=== PATIENT | male | born 1960 | race Caucasian/White ===

== ENCOUNTER → 2023-08-07 | Outpatient (REF) | payer OTHER | LOC: M SFHCDERM 13:02 | PROVIDERS: ATTEND Physician Assistant | DX: D48.9 Neoplasm of uncertain behavior, unspecified (principal) ==

== ENCOUNTER → 2024-06-21 | Outpatient (CLI) | payer OTHER ==
[~2024-06-21] MED LIST: PROHANCE 279.3MG/ML 15ML VIAL As Ordered ONE; PROHANCE 279.3MG/ML 5ML VIAL As Ordered ONE
== END ==
LOC: M RAD 14:56
PROVIDERS: ATTEND Student in an Organized Health Care Education/Training Program
DX: D49.89 Neoplasm of unspecified behavior of other specified sites (principal)
CPT/HCPCS: 70553; A9576

== ENCOUNTER → 2024-06-29 | Outpatient (CLI) | payer OTHER ==
[~2024-06-29] MED LIST changes: +LEVO1TAB39 PO; +MELA3TAB49 PO; +NICO7DIS24 TD; -PROHANCE 279.3MG/ML 15ML VIAL As Ordered ONE; -PROHANCE 279.3MG/ML 5ML VIAL As Ordered ONE
[2024-06-29 14:21] LABS: BASO % 0.1 % (0.0-1.0); EOS # 0.2 10^3/uL (0.0-0.5); EOS % 2.1 % (0.0-3.0); HEMATOCRIT 36.4 % (42.0-52.0); HEMOGLOBIN 11.1 g/dl (13.5-17.5); LYMPH # 1.6 10^3/uL (1.5-5.0); LYMPH % 16.5 % (24.0-44.0); MEAN CORPUSCULAR HEMOGLOBIN 25.2 pg (27.0-33.0); MEAN CORPUSCULAR HGB CONC 30.5 g/dl (32.0-36.5); MEAN CORPUSCULAR VOLUME 82.7 fl (80.0-96.0); MONO # 0.7 10^3/uL (0.0-0.8); MONO % 7.5 % (2.0-8.0); NEUTROPHILS # 7.3 10^3/uL (1.5-8.5); NEUTROPHILS % 73.5 % (36.0-66.0); PLATELET COUNT, AUTOMATED 207 10^3/uL (150-450); WHITE BLOOD COUNT 9.9 10^3/uL (4.0-10.0)
[2024-06-29 14:52] LABS: PROTHROMBIN TIME 13.5 SECONDS (12.5-14.5)
[2024-06-29 15:05] LABS: LDH LACTATE DEHYDROGENASE 270 U/L (120-246)
[2024-06-29 15:06] LABS: ALKALINE PHOSPHATASE 88 U/L (40-129); ALT/SGPT 17 U/L (7.0-40); AST/SGOT 23 U/L (<34); BILIRUBIN,TOTAL 0.8 MG/DL (0.3-1.2); BLOOD UREA NITROGEN 14 MG/DL (9-23); CALCIUM LEVEL 8.4 MG/DL (8.3-10.6); CARBON DIOXIDE LEVEL 29 MMOL/L (20-31); CHLORIDE LEVEL 101 MMOL/L (98-107); CREATININE FOR GFR 0.67 MG/DL (0.70-1.30); GLOMERULAR FILTRATION RATE > 60.0 (>49); GLUCOSE, FASTING 91 MG/DL (74-106); POTASSIUM SERUM 3.8 MMOL/L (3.5-5.1); SODIUM LEVEL 140 MMOL/L (136-145); TOTAL PROTEIN 6.6 G/DL (5.7-8.2)
== END ==
LOC: M ONCR 13:16
PROVIDERS: ATTEND General Practice
DX: C34.11 Malignant neoplasm of upper lobe, right bronchus or lung (principal); C79.31 Secondary malignant neoplasm of brain; Z87.891 Personal history of nicotine dependence; Z85.828 Personal history of other malignant neoplasm of skin; Z80.42 Family history of malignant neoplasm of prostate; Z80.3 Family history of malignant neoplasm of breast; Z98.890 Other specified postprocedural states
CPT/HCPCS: 36415; 80053; 83615; 85025; 85610; G0463

== ENCOUNTER 2024-07-01 10:46 | Outpatient (RCR) | payer OTHER ==
[~2024-07-01 10:46] MED LIST changes: -LEVO1TAB39 PO
[2024-07-01] MEDS ORDERED: LEVO1TAB39 PO (11:23)
[2024-07-05] MEDS ORDERED: ONDA-282 PO (08:34)
[2024-07-09] MEDS ORDERED: MEMA10TA PO (08:55)
== END 2024-07-02 ==
LOC: M ONCR 10:46
PROVIDERS: ATTEND General Practice
DX: Z51.0 Encounter for antineoplastic radiation therapy (principal); C79.31 Secondary malignant neoplasm of brain

== ENCOUNTER → 2024-07-19 | Outpatient (CLI) | payer OTHER ==
[~2024-07-19] MED LIST changes: +LEVO1TAB39 PO; +LIDOCAINE 1% MDV 20ML VIAL As Ordered ONE; +MEMA10TA PO; +NS (Normal Saline) 0.9% 1,000 ML IV SCH; +ONDA-282 PO; +VENTAER INH
[2024-07-19 11:35] VITALS: TEMP 97.8
[2024-07-19] MEDS: ceFAZolin SODIUM 2 GM in DEXTROSE 5% (D5W) ADV/MINI-BAG 50 ML IV ONE (12:26)
[2024-07-19] MEDS: fentaNYL 100 MCG/2 ML INJECTION IV PRN (12:48)
[2024-07-19] MEDS: MIDAZOLAM INJ 2MG/2ML VIAL IV PRN (12:48)
[2024-07-19] MEDS: LIDOCAINE 1% MDV 20ML VIAL IM ONE (13:12)
[2024-07-19 13:30] VITALS: BP 130/80; O2SAT 98
== END ==
LOC: M IRPRO 11:17
PROVIDERS: ATTEND General Practice
DX: C34.11 Malignant neoplasm of upper lobe, right bronchus or lung (principal)
CPT/HCPCS: 36561; 99152; 99153; C1894; J0690; J1642; J2250; J3010

== ENCOUNTER → 2024-08-02 | Outpatient (RCR) | payer OTHER ==
[~2024-08-02] MED LIST changes: +DEXA1TA PO; +DEXA2TA PO; +DEXA4TA PO; -LIDOCAINE 1% MDV 20ML VIAL As Ordered ONE; -NS (Normal Saline) 0.9% 1,000 ML IV SCH
== END ==
LOC: M ONCR 07-05 07:40
PROVIDERS: ATTEND General Practice
DX: Z51.0 Encounter for antineoplastic radiation therapy (principal); C79.31 Secondary malignant neoplasm of brain

== ENCOUNTER 2024-08-03 07:43 | Outpatient (RCR) | payer OTHER ==
[2024-08-17] MEDS ORDERED: DEXA2TA PO (09:22)
[2024-08-25] MEDS ORDERED: FULP6INJ (14:11)
[2024-08-25] MEDS ORDERED: POTA-150 (14:11)
[2024-08-25] MEDS ORDERED: ONDA-84 (14:11)
[2024-08-25] MEDS ORDERED: ETOP50CA2 (14:11)
[2024-08-25] MEDS ORDERED: ACET-1349 PO (14:11)
== END 2024-09-01 ==
LOC: M ONCR 07:43
PROVIDERS: ATTEND General Practice
DX: Z51.0 Encounter for antineoplastic radiation therapy (principal); C79.31 Secondary malignant neoplasm of brain

== ENCOUNTER → 2024-11-01 | Outpatient (CLI) | payer OTHER ==
[~2024-11-01] MED LIST changes: +ACET-1349 PO; +ALLO300T2 PO; +ETOP50CA2 PO; +FULP6INJ INJ; +ONDA-84 PO; +POTA-150 PO; +SYMB16INH INH
== END ==
LOC: M ONCR 10:26
PROVIDERS: ATTEND General Practice
DX: C34.11 Malignant neoplasm of upper lobe, right bronchus or lung (principal); C79.31 Secondary malignant neoplasm of brain; Z79.899 Other long term (current) drug therapy; Z87.891 Personal history of nicotine dependence; Z91.041 Radiographic dye allergy status; Z92.21 Personal history of antineoplastic chemotherapy; Z92.25 Personal history of immunosuppression therapy; Z92.3 Personal history of irradiation; Z98.890 Other specified postprocedural states

== ENCOUNTER → 2025-01-21 | Outpatient (CLI) | payer OTHER ==
[~2025-01-21] MED LIST changes: +PROHANCE 279.3MG/ML 15ML VIAL As Ordered ONE; +PROHANCE 279.3MG/ML 5ML VIAL As Ordered ONE
== END ==
LOC: M RAD 10:44
PROVIDERS: ATTEND General Practice
DX: C79.31 Secondary malignant neoplasm of brain (principal)
CPT/HCPCS: 70553; A9576

== ENCOUNTER → 2025-02-02 | Outpatient (CLI) | payer OTHER ==
[~2025-02-02] MED LIST changes: -PROHANCE 279.3MG/ML 15ML VIAL As Ordered ONE; -PROHANCE 279.3MG/ML 5ML VIAL As Ordered ONE
== END ==
LOC: M ONCR 08:21
PROVIDERS: ATTEND General Practice
DX: C34.11 Malignant neoplasm of upper lobe, right bronchus or lung (principal); C79.31 Secondary malignant neoplasm of brain; Z87.891 Personal history of nicotine dependence; Z92.3 Personal history of irradiation; Z92.21 Personal history of antineoplastic chemotherapy; Z91.041 Radiographic dye allergy status; Z79.899 Other long term (current) drug therapy

== ENCOUNTER 2025-03-21 09:23 | Inpatient (IN) | payer OTHER ==
[~2025-03-21] VITALS: Ht 188 cm; Wt 97.0 kg
[2025-03-21] MEDS ORDERED: ALBUTEROL 90 MCG/ACT 8 GM HFA INHALER INH PRN (11:15)
[2025-03-21] MEDS ORDERED: BISACODYL 10 MG SUPP PR PRN (11:20)
[2025-03-21] MEDS ORDERED: MOM 30 ML SUSPENSION UDC PO PRN (11:20)
[2025-03-21] MEDS ORDERED: SENNA 8.6 MG TAB PO PRN (11:20)
[2025-03-21] MEDS ORDERED: SIMETHICONE 80MG CHEW TAB PO PRN (11:20)
[2025-03-21] MEDS ORDERED: MAALOX 30 ML SUSP *UDC PO PRN (11:20)
[2025-03-21] MEDS ORDERED: BISACODYL 5 MG TAB PO PRN (11:20)
[2025-03-21] MEDS ORDERED: ONDANSETRON 4MG ORAL DISINTEGRATING TAB PO PRN (11:20)
[2025-03-21 11:50] VITALS: BP 98/58; TEMP 97.9; O2SAT 97
[2025-03-21] MEDS ORDERED: BENZ-18 PO (12:41)
[2025-03-21] MEDS ORDERED: MELATONIN GUMMY PO (12:41)
[2025-03-21] MEDS ORDERED: DICL20GE TP (12:41)
[2025-03-21] MEDS ORDERED: TAMS-18 PO (12:41)
[2025-03-21] MEDS ORDERED: METH-1164 PO (12:41)
[2025-03-21] MEDS ORDERED: SODI1TAB12 PO (12:41)
[2025-03-21] MEDS ORDERED: CENT1TAB PO (12:41)
[2025-03-21] MEDS ORDERED: MIRA3350 PO (12:41)
[2025-03-21] MEDS ORDERED: MEMA10TA PO (12:41)
[2025-03-21] MEDS ORDERED: ELIQ5TAB PO (12:41)
[2025-03-21] MEDS ORDERED: DOCU100C16 PO (12:41)
[2025-03-21] MEDS ORDERED: PANT-23 PO (12:41)
[2025-03-21] MEDS ORDERED: SENN-186 PO (12:41)
[2025-03-21] MEDS ORDERED: D-101000 PO (12:41)
[2025-03-21] MEDS ORDERED: GABA-1171 PO (12:41)
[2025-03-21] MEDS ORDERED: TECE1200 IV (12:41)
[2025-03-21] MEDS ORDERED: HOME MED LIST COMPLETE! XX SCH (12:45)
[2025-03-21] MEDS: SODIUM CHLORIDE 1 GM TAB PO SCH (16:50)
[2025-03-21] MEDS: GABAPENTIN 100 MG CAP PO SCH (16:50)
[2025-03-21] MEDS: ACETAMINOPHEN 325 MG TAB PO PRN (17:48)
[2025-03-21 20:00] VITALS: BP 105/59; TEMP 98.7; O2SAT 95
[2025-03-21] MEDS: DOCUSATE SODIUM 100 MG CAPSULE PO SCH (20:05)
[2025-03-21] MEDS: RAMELTEON 8 MG TAB PO SCH (20:05)
[2025-03-21] MEDS: APIXABAN 5 MG TAB PO SCH (20:05)
[2025-03-21] MEDS ORDERED: MEMANTINE 5 MG TABLET PO SCH (21:00)
[2025-03-21] MEDS: KETOROLAC 30 MG/ML 1 ML VIAL IM ONE (22:05)
[2025-03-22 04:00] VITALS: BP 96/60; TEMP 97.9; O2SAT 97
[2025-03-22 06:20] LABS: BASO # 0.0 10^3/uL (0.0-0.2); BASO % 0.0 % (0.0-1.0); EOS # 0.1 10^3/uL (0.0-0.5); EOS % 2.7 % (0.0-3.0); LYMPH # 0.4 10^3/uL (1.5-5.0); LYMPH % 16.7 % (24.0-44.0); MONO # 0.3 10^3/uL (0.0-0.8); MONO % 12.7 % (2.0-8.0); NEUTROPHILS # 1.5 10^3/uL (1.5-8.5); NEUTROPHILS % 67.4 % (36.0-66.0); PLATELET COUNT, AUTOMATED 108 10^3/uL (150-450)
[2025-03-22 06:48] LABS: ALT/SGPT < 9 U/L (7.0-40); AST/SGOT 16 U/L (<34); CALCIUM LEVEL 8.3 MG/DL (8.3-10.6); CARBON DIOXIDE LEVEL 28 MMOL/L (20-31); CHLORIDE LEVEL 95 MMOL/L (98-107); CREATININE FOR GFR 0.61 MG/DL (0.70-1.30); GLOMERULAR FILTRATION RATE > 90.0 (>49); POTASSIUM SERUM 3.9 MMOL/L (3.5-5.1); SODIUM LEVEL 131 MMOL/L (136-145)
[2025-03-22] MEDS: PANTOPRAZOLE 40MG TAB PO SCH (07:36)
[2025-03-22] MEDS: VITAMIN D 1,000 INTERNATIONAL UNITS TABLET PO SCH (07:36)
[2025-03-22] MEDS: MULTIVITAMINS/MINERALS THERAP 1 TAB PO SCH (07:36)
[2025-03-22] MEDS: TAMSULOSIN 0.4 MG CAP PO SCH (07:37)
[2025-03-22 12:00] VITALS: BP 94/59; TEMP 97.3; O2SAT 92
[2025-03-22 20:00] VITALS: BP 100/60; TEMP 98.7; O2SAT 98
[2025-03-23 04:00] VITALS: BP 102/55; TEMP 98.7; O2SAT 97
[2025-03-23 12:00] VITALS: BP 95/60; TEMP 98.1; O2SAT 97
[2025-03-23] MEDS: MIRALAX *UNIT DOSE* 17 GM PACKET PO PRN (19:24)
[2025-03-23 20:00] VITALS: BP 96/50; TEMP 98.5; O2SAT 97
[2025-03-24 04:00] VITALS: BP 102/64; TEMP 98.2; O2SAT 97
[2025-03-24 08:29] LABS: BASO # 0.0 10^3/uL (0.0-0.2); BASO % 0.0 % (0.0-1.0); EOS # 0.0 10^3/uL (0.0-0.5); EOS % 1.8 % (0.0-3.0); LYMPH # 0.4 10^3/uL (1.5-5.0); LYMPH % 16.0 % (24.0-44.0); MONO # 0.3 10^3/uL (0.0-0.8); MONO % 13.3 % (2.0-8.0); NEUTROPHILS # 1.5 10^3/uL (1.5-8.5); NEUTROPHILS % 68.5 % (36.0-66.0); PLATELET COUNT, AUTOMATED 127 10^3/uL (150-450)
[2025-03-24 08:59] LABS: CALCIUM LEVEL 8.3 MG/DL (8.3-10.6); CARBON DIOXIDE LEVEL 28 MMOL/L (20-31); CHLORIDE LEVEL 99 MMOL/L (98-107); CREATININE FOR GFR 0.59 MG/DL (0.70-1.30); GLOMERULAR FILTRATION RATE > 90.0 (>49); POTASSIUM SERUM 3.8 MMOL/L (3.5-5.1); SODIUM LEVEL 135 MMOL/L (136-145)
[2025-03-24 12:00] VITALS: BP 97/52; TEMP 98.4; O2SAT 100
[2025-03-24 20:00] VITALS: BP 100/64; TEMP 97.9; O2SAT 97
[2025-03-25 04:00] VITALS: BP 103/63; TEMP 99.2; O2SAT 94
[2025-03-25] MEDS: BACLOFEN 5 MG PER 1/2 TABLET PO SCH (07:00)
[2025-03-25 12:00] VITALS: BP 94/51; TEMP 97.3; O2SAT 99
[2025-03-25 20:00] VITALS: BP 96/52; TEMP 98.6; O2SAT 97
[2025-03-26 04:00] VITALS: BP 121/65; TEMP 97.7; O2SAT 97
[2025-03-26 12:00] VITALS: BP 114/68; TEMP 97.4; O2SAT 98
[2025-03-26 20:00] VITALS: BP 100/56; TEMP 98.8; O2SAT 96
[2025-03-26] MEDS: LIDOCAINE 5% OINT 30 GM TUBE TOP PRN (20:05)
[2025-03-27 04:00] VITALS: BP 113/63; TEMP 97.7; O2SAT 98
[2025-03-27] MEDS: BENZONATATE 100 MG CAPSULE PO PRN (05:06)
[2025-03-27 12:00] VITALS: BP 105/65; TEMP 97.9; O2SAT 96
[2025-03-27 19:30] VITALS: BP 118/62; TEMP 97.7; O2SAT 93
[2025-03-28 04:00] VITALS: BP 119/64; TEMP 97.8; O2SAT 95
[2025-03-28 07:35] LABS: BASO # 0.0 10^3/uL (0.0-0.2); BASO % 0.0 % (0.0-1.0); EOS # 0.0 10^3/uL (0.0-0.5); EOS % 2.0 % (0.0-3.0); LYMPH # 0.4 10^3/uL (1.5-5.0); LYMPH % 21.4 % (24.0-44.0); MONO # 0.2 10^3/uL (0.0-0.8); MONO % 10.0 % (2.0-8.0); NEUTROPHILS # 1.3 10^3/uL (1.5-8.5); NEUTROPHILS % 66.1 % (36.0-66.0); PLATELET COUNT, AUTOMATED 105 10^3/uL (150-450)
[2025-03-28 08:04] LABS: CALCIUM LEVEL 8.4 MG/DL (8.3-10.6); CARBON DIOXIDE LEVEL 26 MMOL/L (20-31); CHLORIDE LEVEL 96 MMOL/L (98-107); CREATININE FOR GFR 0.54 MG/DL (0.70-1.30); GLOMERULAR FILTRATION RATE > 90.0 (>49); POTASSIUM SERUM 3.6 MMOL/L (3.5-5.1); SODIUM LEVEL 131 MMOL/L (136-145)
[2025-03-28 12:00] VITALS: BP 108/62; TEMP 97.9; O2SAT 100
[2025-03-28] MEDS: ACETAMINOPHEN 500 MG TAB PO SCH (12:41)
[2025-03-28] MEDS: BACLOFEN 10 MG TAB PO SCH (12:41)
[2025-03-28 19:25] VITALS: BP 111/62; TEMP 97.9; O2SAT 95
[2025-03-28] MEDS: AMITRIPTYLINE 50MG TAB PO SCH (20:01)
[2025-03-28] MEDS ORDERED: AMITRIPTYLINE 25 MG TABLET PO SCH (21:00)
[2025-03-29 04:02] VITALS: BP 121/72; TEMP 98.1; O2SAT 94
[2025-03-29 12:00] VITALS: BP 109/64; TEMP 97.7; O2SAT 94
[2025-03-29] MEDS: NAPROXEN 250 MG TAB PO ONE (14:11)
[2025-03-29 19:20] VITALS: BP 108/62; TEMP 97.7; O2SAT 100
[2025-03-30 03:35] VITALS: BP 116/71; TEMP 98; O2SAT 98
[2025-03-30] MEDS: NAPROXEN 250 MG TAB PO SCH (07:22)
[2025-03-30 12:00] VITALS: BP 104/62; TEMP 97.7; O2SAT 97
[2025-03-30 20:00] VITALS: BP 122/69; TEMP 98.6; O2SAT 98
[2025-03-31 04:00] VITALS: BP 133/74; TEMP 97.6; O2SAT 97
[2025-03-31 11:02] LABS: BASO # 0.0 10^3/uL (0.0-0.2); BASO % 0.0 % (0.0-1.0); EOS # 0.1 10^3/uL (0.0-0.5); EOS % 2.4 % (0.0-3.0); LYMPH # 0.4 10^3/uL (1.5-5.0); LYMPH % 17.6 % (24.0-44.0); MONO # 0.2 10^3/uL (0.0-0.8); MONO % 8.3 % (2.0-8.0); NEUTROPHILS # 1.5 10^3/uL (1.5-8.5); NEUTROPHILS % 71.7 % (36.0-66.0); PLATELET COUNT, AUTOMATED 135 10^3/uL (150-450)
[2025-03-31 11:31] LABS: CALCIUM LEVEL 8.1 MG/DL (8.3-10.6); CARBON DIOXIDE LEVEL 28 MMOL/L (20-31); CHLORIDE LEVEL 94 MMOL/L (98-107); CREATININE FOR GFR 0.52 MG/DL (0.70-1.30); GLOMERULAR FILTRATION RATE > 90.0 (>49); POTASSIUM SERUM 3.8 MMOL/L (3.5-5.1); SODIUM LEVEL 130 MMOL/L (136-145)
[2025-03-31 12:02] VITALS: BP 101/61; TEMP 97.9; O2SAT 98
[2025-03-31 20:00] VITALS: BP 96/52; TEMP 98.5; O2SAT 97
[2025-04-01 04:00] VITALS: BP 131/59; TEMP 98.3; O2SAT 98
[2025-04-01 12:03] VITALS: BP 116/62; TEMP 97.8; O2SAT 98
[2025-04-01 19:47] VITALS: BP 104/56; TEMP 97.6; O2SAT 98
[2025-04-02 04:08] VITALS: BP 130/74; TEMP 97.9; O2SAT 97
[2025-04-02 09:20] VITALS: BP 115/65; TEMP 98; O2SAT 98
[2025-04-02 12:00] VITALS: BP 127/74; TEMP 98.1; O2SAT 97
[2025-04-02 19:33] VITALS: BP 112/66; TEMP 97.9; O2SAT 98
[2025-04-03 03:26] VITALS: BP 134/80; TEMP 98.4; O2SAT 95
[2025-04-03 12:00] VITALS: BP 138/82; TEMP 97.7; O2SAT 96
[2025-04-03 20:07] VITALS: BP 112/56; TEMP 98.3; O2SAT 93
[2025-04-04 04:00] VITALS: BP 116/55; TEMP 98.3; O2SAT 97
[2025-04-04 06:37] LABS: BASO # 0.0 10^3/uL (0.0-0.2); BASO % 0.0 % (0.0-1.0); EOS # 0.1 10^3/uL (0.0-0.5); EOS % 2.5 % (0.0-3.0); LYMPH # 0.4 10^3/uL (1.5-5.0); LYMPH % 18.0 % (24.0-44.0); MONO # 0.3 10^3/uL (0.0-0.8); MONO % 13.1 % (2.0-8.0); NEUTROPHILS # 1.6 10^3/uL (1.5-8.5); NEUTROPHILS % 66.0 % (36.0-66.0); PLATELET COUNT, AUTOMATED 117 10^3/uL (150-450)
[2025-04-04 06:56] LABS: CALCIUM LEVEL 8.3 MG/DL (8.3-10.6); CARBON DIOXIDE LEVEL 29 MMOL/L (20-31); CHLORIDE LEVEL 95 MMOL/L (98-107); CREATININE FOR GFR 0.57 MG/DL (0.70-1.30); GLOMERULAR FILTRATION RATE > 90.0 (>49); POTASSIUM SERUM 4.2 MMOL/L (3.5-5.1); SODIUM LEVEL 131 MMOL/L (136-145)
[2025-04-04 12:00] VITALS: BP 118/63; TEMP 98.4; O2SAT 97
[2025-04-04] MEDS ORDERED: BENZ-18 PO (13:16)
[2025-04-04] MEDS ORDERED: ACET-683 PO (13:16)
[2025-04-04] MEDS ORDERED: METH-1164 PO (13:16)
[2025-04-04] MEDS ORDERED: AMIT50TA PO (13:16)
[2025-04-04] MEDS ORDERED: ELIQ5TAB PO (13:16)
[2025-04-04] MEDS ORDERED: D-101000 PO (13:16)
[2025-04-04] MEDS ORDERED: PANT-23 PO (13:16)
[2025-04-04] MEDS ORDERED: SODI1TAB12 PO (13:16)
[2025-04-04] MEDS ORDERED: BISA10SU PR (13:17)
[2025-04-04] MEDS ORDERED: BACL10TA2 PO (13:17)
[2025-04-04] MEDS ORDERED: TAMS1CAP17 PO (13:17)
[2025-04-04] MEDS ORDERED: NAPR-849 PO (13:17)
[2025-04-04 20:00] VITALS: BP 127/73; TEMP 97.3; O2SAT 99
[2025-04-05 04:00] VITALS: BP 133/61; TEMP 97.5; O2SAT 96
[2025-04-05 12:00] VITALS: BP 116/77; TEMP 97.7; O2SAT 98
[2025-04-05 20:00] VITALS: BP 125/73; TEMP 98.2; O2SAT 97
[2025-04-06 04:00] VITALS: BP 137/82; TEMP 97.4; O2SAT 98
[2025-04-06 12:00] VITALS: BP 123/79; TEMP 97.9; O2SAT 97
== END 2025-04-06 17:30 | disposition home health service (06) | DRG 552 ==
LOC: M PM&R 11:47
PROVIDERS: ADMIT Physical Medicine & Rehabilitation; ATTEND Physical Medicine & Rehabilitation
DX: M96.1 Postlaminectomy syndrome, not elsewhere classified (principal); E22.2 Syndrome of inappropriate secretion of antidiuretic hormone; C34.90 Malignant neoplasm of unspecified part of unspecified bronchus or lung; C79.31 Secondary malignant neoplasm of brain; C79.72 Secondary malignant neoplasm of left adrenal gland; E87.1 Hypo-osmolality and hyponatremia; R33.9 Retention of urine, unspecified; R26.89 Other abnormalities of gait and mobility; J38.3 Other diseases of vocal cords; Z86.718 Personal history of other venous thrombosis and embolism; K21.9 Gastro-esophageal reflux disease without esophagitis; Z92.21 Personal history of antineoplastic chemotherapy; Z92.3 Personal history of irradiation; I48.0 Paroxysmal atrial fibrillation; Z91.041 Radiographic dye allergy status; Z79.899 Other long term (current) drug therapy